=== PATIENT | female | born 1955 | race Asian ===

== ENCOUNTER 2021-04-14 08:12 | Inpatient (IN) | payer OTHER ==
[2021-04-14 08:16] VITALS: BMI 25.5
[2021-04-14] MEDS ORDERED: LACTATED RINGERS SOLUTION 1000 ML INFUS.BAG IV ONE (09:05)
[2021-04-14 09:38] LABS: BASO % 0.4 % (0-2.0); EOS % 0.2 % (0-4.5); HEMATOCRIT 41.7 % (32.4-45.2); HEMOGLOBIN 14.1 GM/dL (10.7-15.3); LYMPH % 9.7 % (8-40); MCH 30.8 pg (25.7-33.7); MCHC 33.9 g/dl (32.0-36.0); MEAN CELL VOLUME 90.7 fl (80-96); MEAN PLT VOLUME 9.2 fl (7.5-11.1); MONO % 8.7 % (3.8-10.2); PLATELET COUNT 251 10^3/uL (134-434); RBC 4.59 M/mm3 (3.60-5.2); RDW 14.1 % (11.6-15.6); WHITE BLOOD COUNT 10.7 K/mm3 (4.0-10.0)
[2021-04-14 09:43] LABS: EPI CELLS 20 /uL (0-25.1); HYALINE CASTS 1 /uL (0-3.1); PH,URINE 5.5 (5.0-8.0); URINE APPEARANCE CLOUDY; URINE BACTERIA >9,000 /uL (0-1359); URINE BILIRUBIN NEGATIVE (NEGATIVE); URINE COLOR YELLOW; URINE GLUCOSE (UA) 3+ (NEGATIVE); URINE KETONE NEGATIVE (NEGATIVE); URINE LEUK ESTERASE 2+ (NEGATIVE); URINE NITRITE NEGATIVE (NEGATIVE); URINE PROTEIN 1+ (NEGATIVE); URINE RBC 81 /uL (0-23.9); URINE UROBILINOGEN 0.2 mg/dL (0.2-1.0); URINE WBC 1784 /uL (0-25.8)
[2021-04-14 10:02] LABS: CHLORIDE 104 mmol/L (98-107); SODIUM 134 mmol/L (136-145)
[2021-04-14 10:06] LABS: CALCIUM 9.2 mg/dL (8.5-10.1)
[2021-04-14 10:07] LABS: ALBUMIN 3.5 g/dl (3.4-5.0); BLOOD UREA NITROGEN 24.5 mg/dL (7-18); CO2 24 mmol/L (21-32); GLUCOSE,RANDOM 226 mg/dL (74-106)
[2021-04-14 10:10] LABS: CREATININE 1.2 mg/dL (0.55-1.3); SGOT/AST 78 U/L (15-37)
[2021-04-14 10:11] LABS: BILIRUBIN,TOTAL 2.1 mg/dL (0.2-1)
[2021-04-14 10:12] LABS: TOT PROT 8.4 g/dl (6.4-8.2)
[2021-04-14 10:13] LABS: ALK PHOS 75 U/L (45-117)
[2021-04-14] MEDS ORDERED: CEFTRIAXONE 1 GM in DEXTROSE 5%-WATER - 100 ML IVPB ONE (10:17)
[2021-04-14] MEDS ORDERED: CEFTRIAXONE 1 GM/50 ML BAG ONE (10:29)
[2021-04-14 10:33] LABS: ANION GAP 6 MMOL/L (8-16); LACTIC ACID 2.7 mmol/L (0.4-2.0); SGPT/ALT 31 U/L (13-61)
[2021-04-14] MEDS ORDERED: SODIUM CHLORIDE 0.9% 500 ML INFUS.BAG IV ONE (10:36)
[2021-04-14] MEDS ORDERED: ATORVASTATIN CA 40 MG TABLET (FP) PO ONE (11:38)
[2021-04-14] MEDS ORDERED: LEVOTHYROXINE NA 25 MCG TABLET (FP) ONE (12:02)
[2021-04-14] MEDS ORDERED: VALSARTAN 80 MG TABLET ONE (12:02)
[2021-04-14] MEDS ORDERED: sitaGLIPtin PHOSPHATE 50 MG TABLET ONE (12:02)
[2021-04-14] MEDS ORDERED: ATORVASTATIN CA 40 MG TABLET (FP) ONE (12:02)
[2021-04-14] MEDS: VALSARTAN 160 MG TABLET PO SCH (12:12)
[2021-04-14] MEDS: LEVOTHYROXINE NA 100 MCG TABLET (FP) PO SCH (12:12)
[2021-04-14] MEDS: ATORVASTATIN CA 40 MG TABLET (FP) PO SCH ×2 (12:12→21:13)
[2021-04-14] MEDS ORDERED: LEVOTHYROXINE NA 100 MCG TABLET (FP) PO ONE (12:15)
[2021-04-14 12:24] LABS: CALCIUM 9.2 mg/dL (8.5-10.1)
[2021-04-14 12:25] LABS: BLOOD UREA NITROGEN 21.7 mg/dL (7-18)
[2021-04-14] MEDS ORDERED: ACETAMINOPHEN 1000 MG/100 ML VIAL (NON FORMULARY) IVPB ONE (12:43)
[2021-04-14] MEDS ORDERED: ACETAMINOPHEN INJECTION 100 ML IVPB ONE (12:44)
[2021-04-14 13:32] LABS: BASO % 0.3 % (0-2.0); EOS % 0.1 % (0-4.5); HEMATOCRIT 37.4 % (32.4-45.2); HEMOGLOBIN 12.8 GM/dL (10.7-15.3); LYMPH % 16.3 % (8-40); MCH 30.8 pg (25.7-33.7); MCHC 34.1 g/dl (32.0-36.0); MEAN CELL VOLUME 90.3 fl (80-96); MEAN PLT VOLUME 9.2 fl (7.5-11.1); NEUT % 78.3 % (42.8-82.8); PLATELET COUNT 206 10^3/uL (134-434); RBC 4.14 M/mm3 (3.60-5.2); RDW 13.8 % (11.6-15.6); WHITE BLOOD COUNT 8.5 K/mm3 (4.0-10.0)
[2021-04-14] MEDS ORDERED: CEFTRIAXONE 1 GM in DEXTROSE 5%-WATER - 50 ML IVPB ONE ×2 (13:56→16:15)
[2021-04-14 14:05] LABS: LACTIC ACID 3.8 mmol/L (0.4-2.0)
[2021-04-14] MEDS ORDERED: LACTATED RINGERS SOLUTION 1000 ML INFUS.BAG IV SCH (14:45)
[2021-04-14] MEDS ORDERED: metFORMIN HCL 500 MG TABLET (FP) PO SCH (16:30)
[2021-04-14] MEDS ORDERED: ACETAMINOPHEN 325 MG TABLET (FP) PO PRN (16:33)
[2021-04-14] MEDS ORDERED: DEXTROSE 5%-WATER - 50 ML IVPB ONE (16:38)
[2021-04-14] MEDS ORDERED: cefTRIAXone SODIUM 1 GM VIAL ONE (16:38)
[2021-04-14] MEDS: SODIUM CHLORIDE 0.45% 1,000 ML IV SCH (16:46)
[2021-04-14] MEDS: metFORMIN HCL 500 MG TABLET (FP) PO SCH ×2 (16:47→16:50)
[2021-04-14] MEDS: LACTATED RINGERS SOLUTION 1,000 ML IV SCH (16:50)
[2021-04-14] MEDS: DOCUSATE SODIUM 100 MG CAPSULE (FP) PO SCH (21:13)
[2021-04-15] MEDS: LACTATED RINGERS SOLUTION 1,000 ML IV SCH ×3 (02:48→16:46)
[2021-04-15] MEDS: metFORMIN HCL 500 MG TABLET (FP) PO SCH ×2 (06:02→16:49)
[2021-04-15] MEDS: LEVOTHYROXINE NA 100 MCG TABLET (FP) PO SCH (06:02)
[2021-04-15] MEDS ORDERED: LEVOTHYROXINE NA 100 MCG TABLET (FP) PO SCH (07:00)
[2021-04-15 09:00] LABS: BASO % 0.5 % (0-2.0); EOS % 0.2 % (0-4.5); HEMATOCRIT 32.6 % (32.4-45.2); HEMOGLOBIN 11.1 GM/dL (10.7-15.3); LYMPH % 15.6 % (8-40); MCH 30.7 pg (25.7-33.7); MCHC 34.2 g/dl (32.0-36.0); MEAN CELL VOLUME 89.7 fl (80-96); MEAN PLT VOLUME 9.1 fl (7.5-11.1); MONO % 10.3 % (3.8-10.2); NEUT % 73.4 % (42.8-82.8); PLATELET COUNT 199 10^3/uL (134-434); RBC 3.63 M/mm3 (3.60-5.2); RDW 13.4 % (11.6-15.6); WHITE BLOOD COUNT 7.3 K/mm3 (4.0-10.0)
[2021-04-15] MEDS ORDERED: DEXTROSE 5%-WATER 100 ML IVPB ONE (09:29)
[2021-04-15] MEDS: CEFTRIAXONE 2 GM in DEXTROSE 5%-WATER 2 GM/100 ML BAG IVPB SCH (09:32)
[2021-04-15] MEDS: VALSARTAN 160 MG TABLET PO SCH (09:32)
[2021-04-15 09:34] LABS: BLOOD UREA NITROGEN 17.7 mg/dL (7-18); CALCIUM 8.8 mg/dL (8.5-10.1)
[2021-04-15 09:38] LABS: CREATININE 0.7 mg/dL (0.55-1.3)
[2021-04-15] MEDS: SODIUM CHLORIDE 0.45% 1,000 ML IV SCH ×2 (15:27→15:38)
[2021-04-15] MEDS: DOCUSATE SODIUM 100 MG CAPSULE (FP) PO SCH (21:10)
[2021-04-15] MEDS: ATORVASTATIN CA 40 MG TABLET (FP) PO SCH (21:10)
[2021-04-16] MEDS: LACTATED RINGERS SOLUTION 1,000 ML IV SCH ×3 (01:51→20:09)
[2021-04-16] MEDS: metFORMIN HCL 500 MG TABLET (FP) PO SCH ×2 (06:45→17:31)
[2021-04-16] MEDS: LEVOTHYROXINE NA 100 MCG TABLET (FP) PO SCH (06:45)
[2021-04-16] MEDS ORDERED: DEXTROSE 5%-WATER 100 ML IVPB ONE (10:03)
[2021-04-16] MEDS: CEFTRIAXONE 2 GM in DEXTROSE 5%-WATER 2 GM/100 ML BAG IVPB SCH (10:09)
[2021-04-16] MEDS: VALSARTAN 160 MG TABLET PO SCH (10:10)
[2021-04-16] MEDS: ATORVASTATIN CA 40 MG TABLET (FP) PO SCH (21:23)
[2021-04-16] MEDS: DOCUSATE SODIUM 100 MG CAPSULE (FP) PO SCH (21:23)
[2021-04-17] MEDS: LEVOTHYROXINE NA 100 MCG TABLET (FP) PO SCH (06:44)
[2021-04-17] MEDS: metFORMIN HCL 500 MG TABLET (FP) PO SCH ×2 (06:44→17:09)
[2021-04-17 08:48] LABS: EOS % 3.8 % (0-4.5); HEMATOCRIT 35.4 % (32.4-45.2); HEMOGLOBIN 12.1 GM/dL (10.7-15.3); LYMPH % 28.5 % (8-40); MCH 30.2 pg (25.7-33.7); MCHC 34.2 g/dl (32.0-36.0); MEAN CELL VOLUME 88.3 fl (80-96); MEAN PLT VOLUME 8.7 fl (7.5-11.1); MONO % 7.2 % (3.8-10.2); NEUT % 59.5 % (42.8-82.8); PLATELET COUNT 269 10^3/uL (134-434); RDW 13.6 % (11.6-15.6); WHITE BLOOD COUNT 4.6 K/mm3 (4.0-10.0)
[2021-04-17 09:09] LABS: CALCIUM 8.5 mg/dL (8.5-10.1)
[2021-04-17 09:10] LABS: BLOOD UREA NITROGEN 14.8 mg/dL (7-18)
[2021-04-17 09:13] LABS: CREATININE 0.7 mg/dL (0.55-1.3)
[2021-04-17] MEDS ORDERED: DEXTROSE 5%-WATER 100 ML IVPB ONE (09:56)
[2021-04-17] MEDS: LACTATED RINGERS SOLUTION 1,000 ML IV SCH (09:59)
[2021-04-17] MEDS: CEFTRIAXONE 2 GM in DEXTROSE 5%-WATER 2 GM/100 ML BAG IVPB SCH (10:00)
[2021-04-17] MEDS: VALSARTAN 160 MG TABLET PO SCH (10:01)
[2021-04-17 14:50] VITALS: BP 145/73; PULSE 79; TEMP 98.3
== END 2021-04-17 18:29 | disposition home or self-care (01) | DRG 690 ==
LOC: JER 08:12 → JERBED 10:56 → J6S 15:45
PROVIDERS: ADMIT Internal Medicine; ATTEND Internal Medicine
DX: N39.0 Urinary tract infection, site not specified (principal); E87.2 Acidosis; N12 Tubulo-interstitial nephritis, not specified as acute or chronic; E78.5 Hyperlipidemia, unspecified; E11.9 Type 2 diabetes mellitus without complications; I10 Essential (primary) hypertension; K21.9 Gastro-esophageal reflux disease without esophagitis; K44.9 Diaphragmatic hernia without obstruction or gangrene; B96.20 Unspecified Escherichia coli [E. coli] as the cause of diseases classified elsewhere; E03.9 Hypothyroidism, unspecified; K59.09 Other constipation; K57.90 Diverticulosis of intestine, part unspecified, without perforation or abscess without bleeding; D64.9 Anemia, unspecified; D25.9 Leiomyoma of uterus, unspecified; R50.9 Fever, unspecified; Z87.11 Personal history of peptic ulcer disease
CPT/HCPCS: 36415; 71046-TC-FY; 74176-TC; 80048; 80053; 81003; 82962; 83605; 85025; 87040; 87086; 87186; 99285-25; C9803; J0131; U0003; U0005

== ENCOUNTER 2021-09-24 04:19 | Inpatient (IN) | payer BC ==
[2021-09-24] MEDS ORDERED: BUPIVACAINE LIPOSOME/PF (EXPAREL) 266 MG/20 ML VIAL ONE (10:44)
[2021-09-24] MEDS ORDERED: BUPIVACAINE HCL/PF 0.5% (5MG/ML) 10 ML VIAL ONE ×2 (10:44→10:46)
[2021-09-24] MEDS ORDERED: MIDAZOLAM HCL 2 MG/2 ML SINGLE DOSE VIAL ONE ×2 (11:00)
[2021-09-24] MEDS ORDERED: IBUPROFEN 600 MG TABLET (FP) PO PRN (13:11)
[2021-09-24] MEDS ORDERED: ONDANSETRON 4 MG/2 ML VIAL IVPUSH PRN (13:11)
[2021-09-24] MEDS ORDERED: oxyCODONE HCL 5 MG TABLET PO PRN (13:11)
[2021-09-24] MEDS ORDERED: IBUPROFEN 800 MG/8 ML IJ IVPB PRN ×2 (13:11→13:13)
[2021-09-24] MEDS ORDERED: GLYCOPYRROLATE 0.2 MG/1 ML VIAL ONE (13:12)
[2021-09-24] MEDS ORDERED: BISACODYL 5 MG TABLET.DR (FP) PO PRN (13:13)
[2021-09-24] MEDS ORDERED: ELECTROLYTE-148 SOLN 1,000 ML IV SCH ×2 (13:15→15:00)
[2021-09-24] MEDS ORDERED: PHENAZOPYRIDINE HCL 100 MG TABLET (FP) PO ONE (13:35)
[2021-09-24] MEDS ORDERED: TRANEXAMIC ACID 1000 MG/10 ML VIAL IVPUSH ONE (13:35)
[2021-09-24] MEDS ORDERED: GABAPENTIN 300 MG CAPSULE PO ONE (13:35)
[2021-09-24] MEDS ORDERED: CEFAZOLIN 2 GM in DEXTROSE 5%-WATER - 100 ML IVPB SCH (13:45)
[2021-09-24] MEDS ORDERED: ACETAMINOPHEN 1000 MG/100 ML BAG IVPB ONE (13:47)
[2021-09-24] MEDS ORDERED: ACETAMINOPHEN INJECTION 100 ML IVPB ONE (13:55)
[2021-09-24] MEDS ORDERED: LACTATED RINGERS SOLUTION 1,000 ML IV SCH (14:00)
[2021-09-24] MEDS ORDERED: ONDANSETRON 4 MG/2 ML VIAL ONE (14:37)
[2021-09-24] MEDS: metFORMIN HCL 500 MG TABLET (FP) PO SCH (17:00)
[2021-09-24] MEDS: glipiZIDE 5 MG TABLET (FP) PO SCH (17:26)
[2021-09-24] MEDS: CEFAZOLIN 2 GM in DEXTROSE 5%-WATER - 100 ML IVPB SCH (17:57)
[2021-09-24] MEDS ORDERED: ceFAZolin 2 GRAM PREMIX BAG IVPB SCH (18:00)
[2021-09-24] MEDS: INSULIN SLIDING SCALE (NOVOLOG) 1 VIAL SQ SCH (21:42)
[2021-09-24] MEDS ORDERED: ATORVASTATIN CA 40 MG TABLET (FP) PO SCH (22:00)
[2021-09-24] MEDS ORDERED: PATIENT'S OWN MEDICATION (NON-FORMULARY) (Famotidine [Pepcid] 40 MG Tablet) PO SCH (22:00)
[2021-09-24] MEDS ORDERED: FENOFIBRIC ACID 135 MG CAP PO SCH (22:00)
[2021-09-24] MEDS ORDERED: PATIENT'S OWN MEDICATION (NON-FORMULARY) (Icosapent Ethyl [Vascepa] 1 GM Capsule) PO SCH (22:00)
[2021-09-25] MEDS: CEFAZOLIN 2 GM in DEXTROSE 5%-WATER - 100 ML IVPB SCH ×2 (01:56→10:27)
[2021-09-25] MEDS: glipiZIDE 5 MG TABLET (FP) PO SCH ×2 (06:16→17:01)
[2021-09-25] MEDS: metFORMIN HCL 500 MG TABLET (FP) PO SCH ×2 (06:17→16:59)
[2021-09-25] MEDS: INSULIN SLIDING SCALE (NOVOLOG) 1 VIAL SQ SCH ×3 (06:25→16:57)
[2021-09-25] MEDS ORDERED: LEVOTHYROXINE NA 100 MCG TABLET (FP) PO SCH (07:00)
[2021-09-25 09:10] LABS: BASO % 0.4 % (0-2.0); EOS % 2.3 % (0-4.5); HEMATOCRIT 28.8 % (32.4-45.2); LYMPH % 25.2 % (8-40); MCH 31.4 pg (25.7-33.7); MCHC 34.9 g/dl (32.0-36.0); MEAN PLT VOLUME 8.6 fl (7.5-11.1); MONO % 8.1 % (3.8-10.2); PLATELET COUNT 247 10^3/uL (134-434); RDW 14.3 % (11.6-15.6); WHITE BLOOD COUNT 6.2 K/mm3 (4.0-10.0)
[2021-09-25 09:33] LABS: CALCIUM 8.9 mg/dL (8.5-10.1)
[2021-09-25 09:34] LABS: BLOOD UREA NITROGEN 15.9 mg/dL (7-18)
[2021-09-25 09:37] LABS: CREATININE 1.1 mg/dL (0.55-1.3)
[2021-09-25] MEDS ORDERED: ENOXAPARIN NA (PORCINE) 40 MG/0.4 ML DISP.SYRIN SQ SCH (10:00)
[2021-09-25] MEDS ORDERED: LOSARTAN POTASSIUM 50 MG TABLET PO SCH (10:00)
[2021-09-25 14:35] VITALS: BP 127/70; PULSE 67; TEMP 97.9
== END 2021-09-25 17:40 | disposition home or self-care (01) | DRG 743 ==
LOC: J2C 04:19 → J3W 15:12
PROVIDERS: ADMIT Obstetrics & Gynecology; ATTEND Obstetrics & Gynecology
PROC: 0UB10ZZ Excision of Left Ovary, Open Approach (ICD-10-PCS; 2021-09-24)
PROC: 0UT70ZZ Resection of Bilateral Fallopian Tubes, Open Approach (ICD-10-PCS; 2021-09-24)
PROC: 0UT90ZL Resection of Uterus, Supracervical, Open Approach (ICD-10-PCS; principal; 2021-09-24 10:30)
DX: D25.9 Leiomyoma of uterus, unspecified (principal); R10.2 Pelvic and perineal pain; N83.292 Other ovarian cyst, left side
CPT/HCPCS: 36415; 80048; 82962; 85025; 86850; 86900; 86901; 88305-TC; 94760

== ENCOUNTER 2022-07-09 15:05 | Emergency (ER) | payer BC ==
[2022-07-09 15:19] VITALS: BP 150/68; PULSE 72; RESP 19; TEMP 98.6; BMI 25.4
== END 2022-07-09 16:00 | disposition home or self-care (01) ==
LOC: JERFT 15:05
DX: S00.83XA Contusion of other part of head, initial encounter (principal); W20.8XXA Other cause of strike by thrown, projected or falling object, initial encounter
CPT/HCPCS: 99283-25

== ENCOUNTER 2023-01-30 09:54 | Emergency (ER) | payer OTHER, BC ==
[2023-01-30 10:23] VITALS: BP 101/46; PULSE 74; RESP 17; TEMP 98.7; BMI 24.0
[2023-01-30] MEDS ORDERED: ACETAMINOPHEN 500 MG TABLET (FP) PO ONE (10:27)
[2023-01-30] MEDS ORDERED: ACETAMINOPHEN 500 MG TABLET (FP) ONE (10:29)
== END 2023-01-30 11:49 | disposition home or self-care (01) ==
LOC: JERFT 09:54 → JER 09:54 → JERFT 11:49
DX: S80.01XA Contusion of right knee, initial encounter (principal); S63.501A Unspecified sprain of right wrist, initial encounter; M25.521 Pain in right elbow; W01.0XXA Fall on same level from slipping, tripping and stumbling without subsequent striking against object, initial encounter; Y99.0 Civilian activity done for income or pay
CPT/HCPCS: 73070-TC-RT-FY; 73110-TC-RT-FY; 73130-TC-RT-FY; 73562-TC-RT-FY; 99284-25

== ENCOUNTER 2024-04-20 04:10 | Day surgery (SDC) | payer BC ==
[2024-04-15 15:54] VITALS: BMI 23.5
[2024-04-20] MEDS ORDERED: MIDAZOLAM HCL 2 MG/2 ML SINGLE DOSE VIAL ONE (13:07)
[2024-04-20] MEDS ORDERED: PROPOFOL 20 ML ONE (13:07)
[2024-04-20] MEDS: ceFAZolin 2 GRAM PREMIX BAG IVPB ONE (13:50)
[2024-04-20] MEDS ORDERED: oxyCODONE HCL 5 MG TABLET PO PRN (14:17)
[2024-04-20] MEDS ORDERED: LACTATED RINGERS SOLUTION 1,000 ML IV SCH (14:30)
[2024-04-20] MEDS ORDERED: ACETAMINOPHEN 500 MG TABLET (FP) ONE (17:21)
[2024-04-20] MEDS: ACETAMINOPHEN 500 MG TABLET (FP) PO ONE (17:49)
[2024-04-20 18:16] VITALS: BP 149/53; PULSE 58; RESP 16; TEMP 97.8
== END 2024-04-20 19:10 | disposition home or self-care (01) ==
LOC: JASU-SURG 04:10
PROVIDERS: ATTEND Urology
PROC: BT1FZZZ Fluoroscopy of Left Kidney, Ureter and Bladder (ICD-10-PCS; principal; 2024-04-20 13:00)
DX: N20.0 Calculus of kidney (principal)
CPT/HCPCS: 76000-TC-FY; 82962; 94760; C1758